=== PATIENT | male | born 1940 | race Caucasian/White ===

== ENCOUNTER 2017-01-31 07:20 | Day surgery (SDC) | payer MEDICARE ==
[~2017-01-31 07:20] MED LIST: CIPROFLOXACIN HCL 500 MG TABLET PO PRN
--- OUTSIDE RECORDS SUMMARY | 2017-01-31 07:24 | XMS REPORT | Continuity of Care Document ---
:1940 Author Organization [facility] ([facility]) Address [address] [place] [address] Phone [phone] Care Team Providers Name Role Phone Unavailable Primary Care Provider Unavailable Source Comments This disclosure is being made pursuant to the Care Everywhere program, applicable federal and state laws, and may not contain all informaitonavailable regarding this patient.[facility] ([facility]) Active Allergies and Adverse Reactions Not on File Current Medications Not on file Active Problems Not on file Social History Tobacco Use Types Packs/Day Years Used Date Never Assessed Plan of Care Health Maintenance Due Date Last Done Comments Hepatitis B Vaccine (1 of 3 - Primary Series) 1940 Tdap Vaccine 1953 Lipid Disorder Screening 1960 Td Vaccine 1960 Colonoscopy 10/13/1992 Prostate Cancer Screening 1992 Zoster Vaccine 2002 Pneumococcal Vaccine (1 of 2 - PCV13) 2007 Influenza Vaccine: Seasonal (#1) 05/06/2016 Results from Last 3 Months Not on file
--- OUTSIDE RECORDS SUMMARY | 2017-01-31 07:24 | XMS REPORT | Continuity of Care Document ---
:1940 Author Organization [facility] [place] [address] Care Team Providers Name Role Phone Provider, None Per Patient Primary Care Provider Unavailable Source Comments This disclosure is being made pursuant to the Myrl program and maynot contain all information available regarding this patient.[facility] Active Allergies and Adverse Reactions No Known Allergies Current Medications Be aware that medications may not be up to date as of this document. Alwaysverify current medications with the patient. Prescription Sig. Disp. Refills Start Date End Date Status aspirin low dose (ASPIRIN) Chew 81 mg by Active 81 MG CHEW mouth daily. valsartan (DIOVAN) 80 MG Take 80 mg by Active tablet mouth daily. metFORMIN (GLUCOPHAGE) 500 Take 500 mg by Active MG tablet mouth daily. sertraline (ZOLOFT) 50 MG Take 50 mg by Active tablet mouth daily. simvastatin (ZOCOR) 20 MG Take 20 mg by Active tablet mouth nightly. Active Problems Not on file Most Recent Encounters Date Type Specialty Providers Description 01/02/2017 Data Import Social History Tobacco Use Types Packs/Day Years Used Date Never Smoker Plan of Care Health Maintenance Due Date Last Done Comments Tetanus/Pertussis (1 - Tdap) 1961 Colonoscopy 1992 Well Adult Visit 1992 Zoster Vaccine 60+ 2002 Pneumococcal Low/Medium Risk 65+ (1 of 2 - PCV13) 2007 Influenza Immunization (#1) 2016 Results from Last 3 Months Not on file
[2017-01-31] MEDS ORDERED: LIDOCAINE HCL 10 APPL CARTRIDGE TP ONE (08:44)
[2017-01-31 09:28] VITALS: BP 160/74
== END 2017-01-31 07:21 | disposition home or self-care (01) ==
LOC: AMB 07:20
PROVIDERS: ATTEND Urology
PROC: 3E1K88X Irrigation of Genitourinary Tract using Irrigating Substance, Via Natural or Artificial Opening Endoscopic, Diagnostic (ICD-10-PCS; 2017-01-31)
PROC: 0TJB8ZZ Inspection of Bladder, Via Natural or Artificial Opening Endoscopic (ICD-10-PCS; principal; 2017-01-31 08:30)
DX: N32.89 Other specified disorders of bladder (principal); N40.1 Benign prostatic hyperplasia with lower urinary tract symptoms; N13.8 Other obstructive and reflux uropathy; R31.0 Gross hematuria; E11.9 Type 2 diabetes mellitus without complications; I10 Essential (primary) hypertension; Z68.32 Body mass index [BMI] 32.0-32.9, adult